=== PATIENT | female | born 1970 | race Caucasian/White ===

== ENCOUNTER → 2020-11-26 14:55 | Outpatient (CLI) | payer OTHER, SELFPAY ==
--- NOTE | ~2020-11-26 | US_ITS ---
EXAMINATION: US pelvic complete DATE: 11/26/2020 15:31 INDICATION: Left adnexal fullness TECHNIQUE: Multiple transabdominal sonographic images of the pelvis were obtained. COMPARISON: None. FINDINGS: The uterus measures 7.2 x 3.3 x 4.5 cm. The endometrial complex measures 4 mm. The right ov hollie measures 2.4 x 2.1 x 1.8 cm. The left ovary measures 1.9 x 1 x 1.8 cm. There is normal vascular f low in the ovaries. There is no free fluid in the pelvis. IMPRESSION: 1. No sonographic correlate for the patient's symptoms. Reviewed, dictated and finalized at location A. SS REP
== END ==
PROVIDERS: Visit Provider Nurse Practitioner
DX: R14.0 Abdominal distension (gaseous) (principal)
CPT/HCPCS: 76856

== ENCOUNTER → 2021-04-08 10:55 | Outpatient (CLI) | payer OTHER, SELFPAY ==
--- NOTE | ~2021-04-08 | MM_ITS ---
EXAMINATION: MM scrn bishop implant BI w darius HISTORY: Bilateral implant rupture. TECHNIQUE: Craniocaudal and mediolateral oblique 3-D tomosynthesis images with implant displacement a nd synthetic 2-D images were generated. Craniocaudal and mediolateral oblique views of the breasts wi thout implant displacement were obtained using full field digital mammography. CAD analysis was submi tted and interpreted. COMPARISON: No prior mammogram is available for comparison at this institution. BREAST PARENCHYMAL COMPOSITION: There are scattered areas of fibroglandular density. FINDINGS: There are bilateral ruptured saline implants. On the CC images there are clustered punctate calcifications in the lateral aspect of the right breast on CC view and medial aspect of the left br east on CC view. These calcifications are not definitely visualized on the MLO views. IMPRESSION: 1. Clustered bilateral breast calcifications. 2. Magnification views are recommended. BI-RADS Category 0: Incomplete: Needs additional imaging evaluation. Reviewed, dictated and finalized at location A.
== END ==
PROVIDERS: Visit Provider Nurse Practitioner
DX: Z12.31 Encounter for screening mammogram for malignant neoplasm of breast (principal); R92.8 Other abnormal and inconclusive findings on diagnostic imaging of breast
CPT/HCPCS: 77063; 77067

== ENCOUNTER → 2021-05-04 08:47 | Outpatient (CLI) | payer OTHER, SELFPAY ==
--- NOTE | ~2021-05-04 | MM_ITS ---
EXAMINATION: MM diagnostic mammo implant BI HISTORY: Follow-up breast calcifications TECHNIQUE: Additional 3-D tomosynthesis images of the breasts were performed and synthetic 2-D images were generated. CAD analysis was submitted and interpreted. COMPARISON: Comparison to multiple prior studies sequentially, with oldest reviewed study dated 08/01. BREAST PARENCHYMAL COMPOSITION: Breast composed of scattered areas of fibroglandular density. FINDINGS: There are bilateral saline implants which are ruptured. There are clustered monomorphic paul cifications near the right chest wall laterally seen on CC implant displaced view only. There are clu stered monomorphic calcifications medial aspect of the left breast near the chest wall also seen on C C implant displaced view only. IMPRESSION: 1. Probable benign bilateral breast calcifications. Evaluation of the calcifications is limited by ov erlying ruptured implant. 2. Recommend 6 month follow-up diagnostic bilateral mammogram. BI-RADS category 3, probably benign findings. Reviewed, dictated and finalized at location A. IMPRESSION: 1. Probable benign bilateral breast calcifications. Evaluation of the calcifica tions is limited by overlying ruptured implant. 2. Recommend 6 month follow-up diagnostic bilateral mammogram. BI-RADS category 3, probably benign findings.
== END ==
PROVIDERS: Visit Provider Obstetrics & Gynecology Gynecology
DX: R92.8 Other abnormal and inconclusive findings on diagnostic imaging of breast (principal)
CPT/HCPCS: 77066

== ENCOUNTER 2021-05-20 08:53 | Day surgery (SDC) | payer OTHER, SELFPAY ==
[2021-05-04 15:10] VITALS: BMI 26.5
--- NOTE | 2021-05-19 15:12 | P.PNAN_ITS ---
Anes - Initial Pre Proc Eval Procedure: Operation Date: 05/20/21 10:00 Proposed Procedures p Bilateral Breast Implant Exchange with Capsulectomy - Dale Clifton MD Date/Time: 05/19/21 15:12 Surgeon: Dale Clifton MD Pre Op Diagnosis: Bilateral Breast Implant Rupture Patient Data Age: 50 Gender: F Height: 1.6 m Weight: 68 kg Allergies Allergy/AdvReac Type Severity Reaction Status Date / Time latex Allergy Intermediate Rash, Verified 05/20/21 09:40 itching Home Medications Medication Instructions Recorded Confirmed Type cholecalciferol (vitamin D3) 50,000 units PO WEEKLY 01/17/21 05/04/21 History magnesium oxide 400 mg PO DAILY 01/17/21 05/04/21 History metoprolol succinate 50 mg 50 mg PO DAILY 01/17/21 05/04/21 History tablet,extended release 24 hr paroxetine HCl 20 mg tablet 20 mg PO DAILY 01/17/21 05/04/21 History docusate sodium 100 mg capsule 100 mg PO DAILY #14 cap 04/21/21 05/04/21 Rx ondansetron HCl 4 mg tablet 4 mg PO Q8H #21 tablet 04/21/21 05/04/21 Rx oxycodone-acetaminophen 5 mg-325 1 tablet PO Q6H PRN #15 tablet 04/25/21 05/04/21 Rx mg tablet norethindrone (contraceptive) 0.35 mg PO DAILY 05/04/21 05/04/21 History [Kristy] Patient hx anesthesia problems: none Family hx anesthesia problems: none PMFSH Past Medical History Medical History (Updated 05/19/21 @ 15:20 by Landon Whitman DO) Anxiety BMI 26.0-26.9,adult DVT (deep venous thrombosis) Screening for lipid disorders Surgical History Surgical History History of breast augmentation Status post de Quervain's release surgery Family History Family History Grandparent Family history of heart disease in male family member before age 55 Diabetes mellitus Other A-fib Macular degeneration Parkinsons disease Social History Social History (Reviewed 05/18/21 @ 11:33 by Amanda Miramontes Smoking status: Never smoker Alcohol intake: current Drinks per week: 4 Substance use: never Substance use type: does not use Living arrangements: with family Gender identity (if verbalized by the patient): Female Spiritual care concerns: No Anes - Eval Final PreProcedure Day of Procedure 05/19/21 15:12 Patient weight: overweight Heart: regular rate and rhythm Lungs: clear to auscultation and normal air movement Airway: Mallampati scale class II Neurological: alert and oriented Last oral intake: >/= 8 hours ASA classification: II Emergent: no Anesthetic plan: proceed Anesthesia type and monitoring: general LMA and standard monitoring Informed Consent: The patient's anesthetic plan and its attendant risks and roxana efits were discussed with the patient/family/POA. Questions were solicited and answers provided to the satisfaction of the patient/family/POA.
[2021-05-20 09:23] VITALS: BP 109/75; PULSE 65; RESP 16; TEMP 37.2; O2SAT 98; BMI 26.9
--- NOTE | 2021-05-20 09:25 | WPDHPUPDATE1 ---
History and Physical Update Update Date/Time: 05/20/21 09:25 History and Physical has been reviewed, including an updated exam of the patient. There are NO changes in the patient's condition. Risks, benefits, and alternatives have been discussed and questions answered. Patient agrees to proceed with procedure.
[2021-05-20] MEDS: LACTATED RINGERS 1,000 ML 30 ML IV CONT (09:32)
[2021-05-20] MEDS: FAMOTIDINE 20 MG/2 ML VIAL IV PUSH (09:33)
[2021-05-20] MEDS: SCOPOLAMINE 1.5 MG PATCH TRANSDERM (09:33)
--- NOTE | 2021-05-20 09:34 | W.PM.PROC2 ---
Procedure Note - Detailed Date of Procedure 05/20/21 Pre-op Diagnosis Bilateral Breast Implant Rupture Post-op Diagnosis same Procedure Performed Bilateral breast implant exchange with capsulectomy Surgeon Dale Clifton MD Anesthesia general Findings Old implants: Textured 250cc saline New Implants Right - REF# [id number] SN [id number] 250 cc Filled to 265 cc Left - REF# [id number] SN [id number] 250 cc Filled to 265 cc Description of Procedure She was marked in the preoperative holding area with her verification. Risks, benefits, alternatives were discussed in extensive detail. I want her to be very realistic about the risks involved as well as expectations. We discussed to me DVT risks. We discussed all her options. She would like proceed as described. All questions were answered to her satisfaction. Consent obtained. She was taken to the operating room placed supine on the operating room table. Anesthesia provided by anesthesiology. Prepped and draped in a standard sterile fashion. Surgical time-out was taken. 1% lidocaine and 0.25% Marcaine with epinephrine was used to provide a field block. A 15 blade used to make an incision excising the previous IMF scar. Dissection was continued until the capsules identified removed the majority of capsule that was safely removed. I irrigated with 3 L of saline containing solution. Verified strict hemostasis. Using a triple antibiotic Betadine solution I copiously irrigated the pocket. Then using a fill kit on the back table I removed all the air from the implant. This was introduced into the pocket and inflated to the volumes as described. I removed the fill port. Verified it was seated. Closed using 2-0 Vicryl followed by 3-0 Monocryl in a running subcuticular 4-0 Monocryl and finally tissue glue. Dressings were placed. She was woken taken to the PACU without difficulty. All instrument sponge counts were correct at the end of the case. Estimated Blood Loss 20 Drains No Packing No Pathology yes ( Bilateral implant capsules) Complications No immediate complications Condition stable Disposition PACU
[2021-05-20] MEDS: ceFAZolin SODIUM 2 GM/20 ML SW SYRINGE IV PUSH (09:51)
[2021-05-20] MEDS: LIDO 1%/EPINEPHRINE 1:100,000 20 ML VIAL 30 ML INFILTRATE (10:08)
[2021-05-20] MEDS: BUPIVACAINE HCL 0.25% 50 ML VIAL 30 ML INFILTRATE (10:08)
[2021-05-20 11:09] VITALS: BP 87/56; PULSE 61; RESP 8; TEMP 36.1; O2SAT 96
[2021-05-20 11:24] VITALS: BP 110/66; PULSE 75; RESP 16; O2SAT 99
[2021-05-20 11:39] VITALS: BP 111/75; PULSE 72; RESP 14; O2SAT 97
[2021-05-20 11:41] VITALS: BP 111/79; PULSE 69; RESP 16; O2SAT 100
[2021-05-20 12:11] VITALS: BP 116/83; PULSE 65; RESP 16; O2SAT 99
--- NOTE | 2021-05-20 12:33 | WPDANESPN ---
Anes - Prog Note Post-Op Date/Time: 05/20/21 12:33 Cardiovascular status: normal Respiratory status: normal Airway patency: baseline Mental status: baseline Post-Op hydration status: normal Vital Signs: Last Vital Signs Temp 36.1 C L 05/20/21 11:09 Pulse 65 05/20/21 12:11 Resp 16 05/20/21 12:11 BP 116/83 05/20/21 12:11 Pulse Ox 99 05/20/21 12:11 Pain Score (VAS): 0 I/O: Intake & Output 05/19/21 05/20/21 05/20/21 23:59 07:59 15:59 Intake Total 900 Balance 900 Post-procedural complaints: none Patient Feedback: Patient satisfied with anesthetic care. Other Findings: Patient vital signs back to baseline. Patient denies nausea and vomiting. Patient's pain under control. Patient OK for discharge.
== END 2021-05-20 12:42 | disposition home or self-care (01) ==
PROVIDERS: PCP Family Medicine; Visit Provider Surgery Plastic and Reconstructive Surgery
PROC: (CPT 19342; principal; 2021-05-20 10:00)
DX: T85.49XA Other mechanical complication of breast prosthesis and implant, initial encounter (principal)
CPT/HCPCS: 19342

== ENCOUNTER 2021-05-20 15:53 | Outpatient (NON) | payer OTHER, SELFPAY | END 2021-05-23 07:25 | disposition home or self-care (01) | PROVIDERS: PCP Family Medicine; Visit Provider Surgery Plastic and Reconstructive Surgery | DX: T85.43XA Leakage of breast prosthesis and implant, initial encounter (principal) | CPT/HCPCS: 88305 ==

== ENCOUNTER 2021-10-16 10:37 | Emergency (ER) | payer OTHER, SELFPAY ==
--- NOTE | ~2021-10-16 | XR_ITS ---
EXAMINATION: XR shoulder LT min 2V INDICATION: Left shoulder pain TECHNIQUE: Four views of the left shoulder are submitted. COMPARISON: None FINDINGS: Normal alignment. No fracture. There is mild osteoarthritis of the glenohumeral and acromio clavicular joints. Soft tissues are unremarkable. IMPRESSION: 1. No acute osseous abnormality. Reviewed, dictated and finalized at location A. STAND LOADER
--- NOTE | ~2021-10-16 | XR_ITS ---
EXAMINATION: XR wrist LT min 3V DATE: 10/16/2021 12:02 INDICATION: Left wrist pain TECHNIQUE: Posteroanterior, ulnar deviation, oblique, and lateral views of the left wrist were obtain ed. COMPARISON: None available FINDINGS: There is no fracture, dislocation, or subluxation. The bones, soft tissues, and joint space s are normal. IMPRESSION: 1. No acute osseous abnormality. Reviewed, dictated and finalized at location A. NE SETTER
[2021-10-16 11:13] VITALS: BP 109/78; PULSE 82; RESP 16; TEMP 36.2; O2SAT 98
--- NOTE | 2021-10-16 12:15 | ED.FALL ---
HPI - Fall General Chief Complaint: Fall Stated Complaint: fall Time Seen by Provider: 10/16/21 12:15 Source: patient, family and RN notes reviewed Mode of arrival: ambulatory Limitations: no limitations History of Present Illness HPI Narrative: Thiago is a 50-year-old female who ambulated into the [facility]. Patient states she fell after tripping on the sidewalk and left landed on her left shoulder and wrist. Patient has moderate bruising to the left wrist. Patient states she cannot raise her left arm. Patient states she can has full movement of her left wrist MD complaint: fall Related Data Home Medications Medication Instructions Recorded Confirmed cholecalciferol (vitamin D3) 50,000 units PO WEEKLY 01/17/21 10/16/21 magnesium oxide 400 mg PO DAILY 01/17/21 10/16/21 metoprolol succinate 50 mg 50 mg PO DAILY 01/17/21 10/16/21 tablet,extended release 24 hr paroxetine HCl 20 mg tablet 20 mg PO DAILY 01/17/21 10/16/21 linaclotide [Linzess] 145 mcg DAILY 10/16/21 10/16/21 Allergies Allergy/AdvReac Type Severity Reaction Status Date / Time latex Allergy Intermediate Rash, Verified 10/16/21 11:46 itching Review of Systems Review of Systems: CONSTITUTIONAL: Denies body aches, fever, chills, or sweats. EYES: Denies visual changes, redness, or discharge. ENT: Denies rhinorrhea, congestion, sore throat, or otalgia. CARDIOVASCULAR: Denies chest pain, palpitations, or edema. RESPIRATORY: Denies cough or dyspnea. GASTROINTESTINAL: Denies abdominal pain, nausea, vomiting, or diarrhea. GENITOURINARY: Denies dysuria or hematuria. SKIN: Denies rash, itching, or wounds. MUSCULOSKELETAL: + left wrist swelling, left shoulder pain, + decreased movement left shoulder NEUROLOGIC: Denies headache, numbness, tingling, or weakness. PSYCH: Denies depression or anxiety. All systems reviewed & are unremarkable except as noted in HPI and below PMFSH Past Medical History Medical History Anxiety BMI 26.0-26.9,adult DVT (deep venous thrombosis) Screening for lipid disorders Surgical History Surgical History History of breast augmentation Status post de Quervain's release surgery Family History Family History Grandparent Family history of heart disease in male family member before age 55 Diabetes mellitus Other A-fib Macular degeneration Parkinsons disease Social History Social History Smoking status: Never smoker Alcohol intake: current Drinks per week: 4 Substance use: never Substance use type: does not use Gender identity (if verbalized by the patient): Female Spiritual care concerns: No Comments At time of signature, I have reviewed and agree with nursing past medical, surgical, social and family history unless otherwise noted. Please see nursing chart for further information. There is no relevant family history pertinent to the presenting complaint Exam Narrative: GENERAL: Well-appearing, well-nourished, and in no acute distress. HEAD: Normocephalic, atraumatic. EYES: EOMI. No redness or drainage. Conjunctivae normal. ENT: Mucous membranes pink and moist. Nares clear. No rhinorrhea. NECK: Normal AROM. Supple. . CHEST: No respiratory distress. HEART: Normal peripheral pulses. MUSCULOSKELETAL: No bony tenderness; tenderness left shoulder, left wrist,0.5cm ecchymotic area to left wrist, EXTREMITIES: Normal range of motion. No edema. SKIN: Warm, dry, no rash. Capillary refill normal. Normal skin turgor. NEURO: No focal deficits. Alert and oriented x3. Gait steady. PSYCH: Normal affect. No signs of depression or anxiety. Course Vital Signs Vital signs: Vital Signs Temperature 36.2 C L 10/16/21 11:13 Pulse Rate 82 10/16/21 11:13 Respiratory Rate
== END 2021-10-16 12:40 | disposition home or self-care (01) ==
PROVIDERS: Emergency Provider Nurse Practitioner Family; PCP Family Medicine
DX: S40.012A Contusion of left shoulder, initial encounter (principal); S60.212A Contusion of left wrist, initial encounter; W01.0XXA Fall on same level from slipping, tripping and stumbling without subsequent striking against object, initial encounter; F41.9 Anxiety disorder, unspecified; Z86.718 Personal history of other venous thrombosis and embolism
CPT/HCPCS: 73030; 73110; 99214; G0463

== ENCOUNTER → 2021-11-17 09:23 | Outpatient (CLI) | payer OTHER, SELFPAY ==
--- NOTE | ~2021-11-17 | MM_ITS ---
EXAMINATION: MM diag bishop implant BI w darius HISTORY: Follow-up breast calcifications TECHNIQUE: Additional 3-D tomosynthesis images of the breasts were performed and synthetic 2-D images were generated. CAD analysis was submitted and interpreted. COMPARISON: Comparison to multiple prior studies sequentially, with oldest reviewed study dated 08/06. BREAST PARENCHYMAL COMPOSITION: Breast composed of scattered areas of fibroglandular density. FINDINGS: There are no suspicious calcifications, architectural distortion or mass in either breast t o suggest malignancy. There are bilateral saline implants. The previously identified calcifications i n the right breast posteriorly on CC view are not identified on the current study. IMPRESSION: 1. No mammographic evidence for malignancy in either breast. 2. Routine yearly screening mammogram and regular clinical breast examination are recommended. BI-RADS Category 1: Negative Reviewed, dictated and finalized at location A. CAN STUDIES PROFESSOR IMPRESSION: 1. No mammographic evidence for malignancy in either breast. 2. Routine yearly screening mammogram and regular clinical breast examination a re recommended. BI-RADS Category 1: Negative
== END ==
PROVIDERS: Visit Provider Obstetrics & Gynecology Gynecology
DX: R92.8 Other abnormal and inconclusive findings on diagnostic imaging of breast (principal)
CPT/HCPCS: 77062; 77066; G0279

== ENCOUNTER → 2022-02-21 16:40 | Outpatient (CLI) | payer OTHER, SELFPAY ==
--- NOTE | ~2022-02-21 | MR_ITS ---
EXAMINATION: MR shoulder LT wo con DATE: 02/21/2022 17:31 INDICATION: Left shoulder, upper arm and neck pain post fall 4 months prior TECHNIQUE: Magnetic resonance imaging (MRI) of the left shoulder was performed without intravenous co ntrast. Sequences included axial PD-weighted FS FSE, coronal oblique PD-weighted FS FSE, coronal obli que T2-weighted FS FSE, sagittal PD-weighted FS FSE, and sagittal T1-weighted SE. COMPARISON: None. FINDINGS: Coracoacromial arch: The acromion undersurface is curved in morphology (type II). The coracoacromial ligament is normal. M ild acromioclavicular osteoarthritis with cystic change at the lateral head of the clavicle. Rotator cuff: Moderate supraspinatus tendinopathy and mild infraspinatus tendinopathy without discrete tear. The te res minor tendon is normal. Subscapularis tendinopathy with small linear longitudinal split tear with trace amount of fluid tracking medially from the lesser tuberosity footplate along otherwise intact appearing tendon fibers. Normal rotator cuff muscle bulk and signal. Biceps tendon, glenoid labrum and glenohumeral cartilage: Long head of the biceps tendon is normal. Degenerative tearing with amorphous increased signal and ir regular contour to the anteroinferior labrum. Glenohumeral cartilage is normal. Fluid: Physiologic amount of fluid in the glenohumeral joint and biceps tendon sheath. No loose osteochondr al bodies. No abnormally increased fluid signal in the subacromial/subdeltoid bursa to suggest bursit is. Bones: Normal marrow signal with no edema, fracture or abnormal marrow replacing process. IMPRESSION: 1. Moderate supraspinatus tendinopathy without discrete tear and mild tendinopathy with small longitu dinal split tear at the distal subscapularis tendon. 2. Degenerative tearing at the anteroinferior glenoid labrum. 3. Mild acromioclavicular osteoarthritis. Reviewed, dictated and finalized at location A. IMPRESSION: 1. Moderate supraspinatus tendinopathy without discrete tear and mild tendinopa thy with small longitudinal split tear at the distal subscapularis tendon. 2. Degenerative tearing at the anteroinferior glenoid labrum. 3. Mild acromioclavicular osteoarthritis.
== END ==
PROVIDERS: PCP Family Medicine; Visit Provider Nurse Practitioner Family
DX: S49.92XA Unspecified injury of left shoulder and upper arm, initial encounter (principal); X58.XXXA Exposure to other specified factors, initial encounter; M19.012 Primary osteoarthritis, left shoulder
CPT/HCPCS: 73221

== ENCOUNTER → 2023-02-19 11:10 | Outpatient (CLI) | payer OTHER, SELFPAY ==
--- NOTE | ~2023-02-19 | DEXA_ITS ---
Bone Density Report Name: LESIA BRANDON Age: 52 Sex: Female Ethnicity: White Date of : 1970 Indication: postmenopausal; screening for osteoporosis; Referring Provider: MOLLY, ZEYNEP Study: Bone densitometry was performed. Exam Date: February 19, 2023 Accession number: [id number] Bone Density: Region BMD T-score Z-score Classification AP Spine (L1-L4) 0.891 -1.4 -0.5 Osteopenia Femoral Neck (Left) 0.847 0.0 0.9 Normal Total Hip (Left) 0.952 0.1 0.7 Normal Femoral Neck (Right) 0.789 -0.5 0.4 Normal Total Hip (Right) 0.915 -0.2 0.4 Normal Total Hip Mean 0.934 -0.1 0.6 Normal World Health Organization criteria for BMD impression classify patients as: Normal (T-score at or above -1.0), Osteopenia (T-score between -1.0 and -2.5), or Osteoporosis (T-score at or below -2.5). 10-year Fracture Risk(1): Major Osteoporotic Fracture 4.8% Hip Fracture 0.1% Reported Risk Factors: [place] (), Neck BMD=0.789, BMI=28.0 (1) FRAX(R) Version 3.08. Fracture probability calculated for an untreated patient. Fracture probability may be lower if the patient has received treatment. Clinical Information Provided by Patient: Has used the following medications: Vitamin D Patient maximum height was 62.7 Menopause Age: 51 No regular weight bearing exercise Drinks caffeinated beverages Onset of menses at age 13 Number of children 2 Missed period for more than 6 months in a row Impression: The patient has low bone mass, based on the Total Spine T-score. The patient has an estimated ten-year risk of hip fracture of 0.1% and an estimated ten-year risk of major fracture of 4.8%, based on the WHO FRAX algorithm. Discussion: BONE DENSITY IS LOW AT ONE OR MORE SKELETAL SITES. This patient's lowest T-score is low at one or more skeletal sites. It meets the World Health Organization's (WHO) criteria for ?low bone mass? (T-score between -1.0 and -2.5). The patient's 10-year risk of fracture as calculated by FRAX is less than the threshold where pharmacological therapy is recommended by the National Osteoporosis Foundation (NOF). However, all treatment decisions require clinical judgment and consideration of individual patient factors, including patient preferences, comorbidities, previous drug use, risk factors not captured in the FRAX model (e.g., frailty, falls, vitamin D deficiency, increased bone turnover, interval significant decline in bone density) and possible under or overestimation of fracture risk by FRAX. The patient should follow a healthful lifestyle (good nutrition with adequate calcium and vitamin D, and appropriate weight-bearing exercise). Follow-Up: Consider repeating this study in 2 to 3 years to reassess this patient's status, or sooner if there is some new clinical indication. Re
--- NOTE | ~2023-02-19 | MM_ITS ---
EXAMINATION: MM scrn bishop implant BI w darius HISTORY: Screening mammogram TECHNIQUE: Craniocaudal and mediolateral oblique 3-D tomosynthesis images with implant displacement a nd synthetic 2-D images were generated. Craniocaudal and mediolateral oblique views of the breasts wi thout implant displacement were obtained using full field digital mammography. CAD analysis was submi tted and interpreted. COMPARISON: 11/17/2021, 05/04/2021, 04/08/2021 BREAST PARENCHYMAL COMPOSITION: There are scattered areas of fibroglandular density. FINDINGS: There is no evidence of suspicious mass, calcification, or architectural distortion to sugg est malignancy in either breast. There has been no suspicious interval change. IMPRESSION: 1. No mammographic evidence of malignancy. 2. Recommend routine screening mammography in one year. BI-RADS Category 1: Negative Reviewed, dictated and finalized at location A.
== END ==
PROVIDERS: PCP Nurse Practitioner; Visit Provider Nurse Practitioner
DX: Z78.0 Asymptomatic menopausal state (principal); Z12.31 Encounter for screening mammogram for malignant neoplasm of breast; M85.88 Other specified disorders of bone density and structure, other site
CPT/HCPCS: 77063; 77067; 77080

== ENCOUNTER 2023-09-13 08:09 | Day surgery (SDC) | payer OTHER, SELFPAY ==
[2023-08-21 14:58] VITALS: BMI 29.4
--- NOTE | 2023-09-12 07:18 | WPDANESEPPF ---
Anes - Initial Pre Proc Eval Procedure: Operation Date: 09/13/23 10:00 Proposed Procedures p Screening Colonoscopy - Best Arce MD Date/Time: 09/12/23 07:18 Surgeon: Best Arce MD Pre Op Diagnosis: Z12.11 Screening neoplasm of colon Patient Data Age: 52 Gender: F Height: 1.6 m Weight: 75.296 kg Allergies Allergy/AdvReac Type Severity Reaction Status Date / Time latex Allergy Intermediate Rash, Verified 09/13/23 08:49 itching Home Medications Medication Instructions Recorded Confirmed Type cholecalciferol (vitamin D3) 50,000 units PO WEEKLY 01/17/21 09/13/23 History magnesium oxide 400 mg PO DAILY 01/17/21 09/13/23 History metoprolol succinate 50 mg 50 mg PO DAILY 01/17/21 09/13/23 History tablet,extended release 24 hr paroxetine HCl 20 mg tablet (Paxil) 20 mg PO DAILY 01/17/21 09/13/23 History cyclobenzaprine 5 mg tablet 5 mg PO QHS PRN muscle spasm #30 02/14/22 09/13/23 Rx tabs triamcinolone acetonide 0.1 % 1 applic topical TID #30 grams 05/03/23 09/13/23 Rx topical cream Patient hx anesthesia problems: none Family hx anesthesia problems: none Results Review: All pre-operative results and documents have been reviewed as part of the pre-operative evaluation. [facility] Past Medical History Medical History (Updated 09/13/23 @ 09:10 by Landon Whitman DO) Anxiety BMI 26.0-26.9,adult DVT (deep venous thrombosis) DAVID (obstructive sleep apnea) Screening for lipid disorders Surgical History Surgical History History of breast augmentation Status post de Quervain's release surgery Family History Family History Grandparent Family history of heart disease in male family member before age 55 Diabetes mellitus Other A-fib Macular degeneration Parkinsons disease Social History Social History Alcohol intake: current Drinks per week: 4 Substance use: never Substance use type: does not use Living arrangements: with family Gender identity (if verbalized by the patient): Female Spiritual care concerns: No Anes - Eval Final PreProcedure Day of Procedure 09/12/23 07:18 Patient weight: overweight Heart: regular rate and rhythm Lungs: clear to auscultation Airway: Mallampati scale class II Neurological: alert and oriented Last oral intake: >/= 8 hours ASA classification: III Emergent: no Anesthetic plan: proceed Anesthesia type and monitoring: general GIVS and standard monitoring Results Review: All pre-operative results and documents have been reviewed as part of the pre-operative evaluation. Informed Consent: The patient's anesthetic plan and its attendant risks and benefits were discussed with the patient/family/POA. Questions were solicited and answers provided to the satisfaction of the patient/family/POA.
--- NOTE | 2023-09-12 13:19 | PM.HPGS ---
History of Present Illness History of Present Illness Consent: Risks, benefits, and alternatives have been discussed and questions answered. Patient agrees to proceed with procedure. Chief complaint: Z12.11 Screening neoplasm of colon Narrative: Tiffanie Esquivel is a 52 year old female referred for colon cancer screening. Review of Systems Review of Systems: All systems reviewed & are unremarkable except as noted in HPI and below PMFSH Past Medical History Medical History Anxiety BMI 26.0-26.9,adult DVT (deep venous thrombosis) Screening for lipid disorders Surgical History Surgical History History of breast augmentation Status post de Quervain's release surgery Family History Family History Grandparent Family history of heart disease in male family member before age 55 Diabetes mellitus Other A-fib Macular degeneration Parkinsons disease Social History Social History Alcohol intake: current Drinks per week: 4 Substance use: never Substance use type: does not use Living arrangements: with family Gender identity (if verbalized by the patient): Female Spiritual care concerns: No Meds Home Medications and Allergies Home Medications Medication Instructions Recorded Confirmed Type cholecalciferol (vitamin D3) 50,000 units PO WEEKLY 01/17/21 09/13/23 History magnesium oxide 400 mg PO DAILY 01/17/21 09/13/23 History metoprolol succinate 50 mg 50 mg PO DAILY 01/17/21 09/13/23 History tablet,extended release 24 hr paroxetine HCl 20 mg tablet (Paxil) 20 mg PO DAILY 01/17/21 09/13/23 History cyclobenzaprine 5 mg tablet 5 mg PO QHS PRN muscle spasm #30 02/14/22 09/13/23 Rx tabs triamcinolone acetonide 0.1 % 1 applic topical TID #30 grams 05/03/23 09/13/23 Rx topical cream Allergies Allergy/AdvReac Type Severity Reaction Status Date / Time latex Allergy Intermediate Rash, Verified 09/13/23 08:49 itching Exam Const: General: alert Orientation/consciousness: patient oriented x3 Resp: Auscultation: clear to auscultation bilaterally Cardio: Rhythm: regular rhythm GI: GI Palp: Yes Soft to palpation and No Tenderness to palpation present (GI) Neuro: General: patient oriented x3 Assessment and Plan Assessment and plan (1) Colon cancer screening: Code(s): Z12.11 - Encounter for screening for malignant neoplasm of colon Status: Acute Assessment and Plan: Colonoscopy with possible biopsy or polypectomy or cautery or injection of substances.
[2023-09-13 08:56] VITALS: BP 118/84; PULSE 85; RESP 16; O2SAT 99; BMI 27.8
[2023-09-13] MEDS: LACTATED RINGERS 1,000 ML 150 ML IV CONT (09:06)
[2023-09-13 09:50] VITALS: BP 91/59; PULSE 96; RESP 16; O2SAT 75
[2023-09-13 10:00] VITALS: BP 98/70; PULSE 80; RESP 18; O2SAT 100
[2023-09-13 10:10] VITALS: BP 104/77; PULSE 72; RESP 20; O2SAT 99
--- NOTE | 2023-09-13 11:49 | WPDANESPN ---
Anes - Prog Note Post-Op Date/Time: 09/13/23 11:49 Cardiovascular status: normal Respiratory status: normal Airway patency: baseline Mental status: baseline Post-Op hydration status: normal Vital Signs: Last Vital Signs Pulse 72 09/13/23 10:10 Resp 20 09/13/23 10:10 BP 104/77 09/13/23 10:10 Pulse Ox 99 09/13/23 10:10 O2 Del Method Room Air 09/13/23 10:10 Pain Score (VAS): 0 I/O: Intake & Output 09/12/23 09/13/23 09/13/23 23:59 07:59 15:59 Intake Total 550 Balance 550 Post-procedural complaints: none Patient Feedback: Patient satisfied with anesthetic care. Other Findings: Patient vital signs back to baseline. Patient denies nausea and vomiting. Patient's pain under control. Patient OK for discharge.
== END 2023-09-13 10:26 | disposition home or self-care (01) ==
PROVIDERS: PCP Family Medicine; Visit Provider Internal Medicine Gastroenterology
PROC: 0DJD8ZZ Inspection of Lower Intestinal Tract, Via Natural or Artificial Opening Endoscopic (ICD-10-PCS; CPT 45378; principal; 2023-09-13 10:00)
DX: Z12.11 Encounter for screening for malignant neoplasm of colon (principal); K63.89 Other specified diseases of intestine
CPT/HCPCS: 45378

== ENCOUNTER 2024-04-10 04:09 | Emergency (ER) | payer OTHER, SELFPAY ==
--- NOTE | ~2024-04-10 | CT_ITS ---
Non-contrast Head CT History: Seizure Technique: Axial non-contrast imaging of the brain was performed. Dose reduction technique was used on this scan by utilizing automated exposure control and iterative reconstruction technique. The dose -length product (DLP) was 529.67 mGy-cm. Findings: There is no evidence of intracranial hemorrhage, mass lesion, or acute infarct. Brain par enchyma appears normal. The ventricles and subarachnoid spaces are normal in size. The calvarium ap pears normal. The visualized paranasal sinuses and mastoid air cells are clear. Impression: No significant abnormality seen. Reviewed, dictated and finalized at location . Impression: No significant abnormality seen.
--- NOTE | ~2024-04-10 | XR_ITS ---
Portable chest x-ray Comparison: 12/01/2014 Clinical History: Seizure Findings: Lungs are clear, without focal consolidation or pleural effusion. Cardiomediastinal silho uette is stable. Bones and soft tissues are unremarkable. Impression: Normal chest. Reviewed, dictated and finalized at location . Impression: Normal chest.
[2024-04-10 04:10] VITALS: BP 107/77; PULSE 86; RESP 19; TEMP 36.7; O2SAT 98
[2024-04-10 04:11] VITALS: PULSE 86
[2024-04-10 04:13] VITALS: BP 107/77; PULSE 83; RESP 16; TEMP 36.7; O2SAT 96; O2SAT 98
[2024-04-10 04:20] LABS: Basophils Absolute Auto 0.1 K/mm3 (0.0-0.1); Basophils Percent Auto 0.9 % (0.2-1.2); Eosinophils Absolute Auto 0.1 K/mm3 (0-0.3); Eosinophils Percent Auto 2.3 % (0-4.4); Hematocrit 38.2 % (37.0-47.0); Hemoglobin 12.7 g/dL (12.0-15.0); Immature Granulocyte Absolute 0.02 K/mm3 (0.00-0.031); Immature Granulocyte Percent A 0.4 % (0-0.5); Lymphocytes Absolute Auto 1.77 K/mm3 (0.9-3.2); Lymphocytes Percent Auto 31.5 % (18.3-44.2); Mean Corpuscular HGB Conc 33.2 g/dl (32-36); Mean Corpuscular Hemoglobin 29.7 pg (26-34); Mean Corpuscular Volume 89.5 fl (80-100); Mean Platelet Volume 10.6 fl (7.4-10.4); Monocytes Absolute Auto 0.3 K/mm3 (0.1-0.6); Monocytes Percent Auto 5.5 % (2.6-8.5); Neutrophils Absolute Auto 3.3 K/mm3 (1.3-6.7); Neutrophils Percent Auto 59.4 % (45.5-73.1); Platelet Count Result 258 k/mm3 (150-375); Red Blood Count 4.27 M/mm3 (4.2-5.4); Red Cell Distribution Width 12.4 % (11.5-14.5); White Blood Count 5.6 K/mm3 (4.5-10.0)
[2024-04-10 04:31] LABS: Alanine Aminotransferase 17 U/L (6-35); Albumin Level 4.5 g/dL (3.5-5.1); Alkaline Phosphatase 59 U/L (38-126); Anion Gap 9 mmol/L (4-12); Aspartate Amino Transferase 22 U/L (14-36); Bilirubin,Total 0.4 mg/dL (0.2-1.3); Blood Urea Nitrogen 24 mg/dL (7-17); Calcium 9.1 mg/dL (8.4-10.2); Carbon Dioxide 21 mmol/L (22-30); Chloride 105 mmol/L (98-107); Estimated CRCL calculation 74 ml/min; Estimated Glomerular Filt Rate > 60; Glucose 163 mg/dL (65-110); Magnesium 1.9 mg/dL (1.6-2.3); Potassium 4.6 mmol/L (3.4-5.0); Sodium 135 mmol/L (137-145)
[2024-04-10 05:52] VITALS: BP 110/80; PULSE 68; RESP 13; O2SAT 96
--- NOTE | 2024-04-10 06:05 | ED.GENADULT ---
HPI - General Adult General Chief complaint: Seizure Stated complaint: poss seizure Time Seen by Provider: 04/10/24 05:51 History of Present Illness HPI narrative: Patient is a 53-year-old female who presents the emergency department this morning after a seizure episode that occurred at home. Patient denies any history of seizure disorder. Patient was sleeping next to her and has been states that he woke up to her shaking in bed. When he got up he noticed that she was foaming at the mouth and was not responsive to him. Patient did have an episode of urinary incontinence. Patient and have been on a keto diet recently and this is the only thing that changed in her daily habits. Patient is currently denying any headaches, dizziness, lightheadedness, focal weakness, numbness and no tingling. No fevers or chills at home. No additional symptoms or concerns at this time. Related Data Home Medications Medication Instructions Recorded Confirmed cholecalciferol (vitamin D3) 50,000 units PO WEEKLY 01/17/21 09/13/23 magnesium oxide 400 mg PO DAILY 01/17/21 09/13/23 metoprolol succinate 50 mg 50 mg PO DAILY 01/17/21 09/13/23 tablet,extended release 24 hr paroxetine HCl 20 mg tablet (Paxil) 20 mg PO DAILY 01/17/21 09/13/23 Allergies Allergy/AdvReac Type Severity Reaction Status Date / Time latex Allergy Intermediate Rash, Verified 04/10/24 04:11 itching Review of Systems Review of Systems: All systems are reviewed and are negative unless stated otherwise in the HPI. [facility] Past Medical History Medical History Anxiety BMI 26.0-26.9,adult DVT (deep venous thrombosis) DAVID (obstructive sleep apnea) Screening for lipid disorders Surgical History Surgical History History of breast augmentation Status post de Quervain's release surgery Family History Family History Grandparent Family history of heart disease in male family member before age 55 Diabetes mellitus Other A-fib Macular degeneration Parkinsons disease Social History Social History Alcohol intake: current Drinks per week: 4 Substance use: never Substance use type: does not use Living arrangements: with family Gender identity (if verbalized by the patient): Female Spiritual care concerns: No Exam Narrative: General: Alert, awake, afebrile, in no acute distress. HEENT: PERRL, no rhinorrhea, no post nasal drip, oropharynx clear. Cardiovascular: Regular rate and rhythm, no murmurs, rubs or gallops, no peripheral edema. Respiratory: Clear to auscultation bilaterally, no tachypnea, no wheezing, no rhonchi, no rubs, no respiratory distress. Abdomen: Soft, nontender, nondistended, no rebound, no guarding, no peritoneal signs. Musculoskeletal: No joint swelling or deformity, normal muscle tone. Skin: No rashes or petechia, no signs of infection. Neurological: Alert and oriented to person, place, and time. Follows all commands. 5/5 motor strength in the bilateral upper and lower extremity, sensation intact to bilateral upper and lower extremity, cranial nerves 2-12 grossly intact. No focal deficits, speech is clear and fluent. Course Vital Signs Vital signs: Vital Signs Temperature 98.1 F 04/10/24 04:10 Pulse Rate 86 04/10/24 04:10 Respiratory Rate 19 04/10/24 04:10 Blood Pressure 107/77 04/10/24 04:10 Pulse Oximetry 98 04/10/24 04:10 Oxygen Delivery Room Air 04/10/24 04:10 Temperature 98.1 F 04/10/24 04:13 Pulse Rate 68 04/10/24 05:52 Respiratory Rate 13 04/10/24 05:52 Blood Pressure 110/80 04/10/24 05:52 Pulse Oximetry 96 04/10/24 05:52 Oxygen Delivery Room Air 04/10/24 04:13 Medical Decision Making MDM Narrative Medical decision making
[2024-04-10 06:43] LABS: Appearance Urine Clear (Clear); Bacteria Urine None Seen /hpf; Bilirubin Urine Negative (Negative); Blood Urine Negative (Negative); Color Urine Yellow (Yellow); Glucose Urine UA Negative (Negative); Ketones Urine Negative (Negative); Leukocyte Esterase Ur Negative LEU/UL (Negative); Nitrate Urine Negative (Negative); Protein Urine Trace mg/dL (Negative); RBC Urine 0-2 /hpf (0-2); Specific Grav Ur 1.021 (1.001-1.035); Squamous Epithelial Cell Urine None Seen /hpf (Few); Urobilinogen Urine 0.2 mg/dL (<2.0); WBC Urine 0-5 /hpf (0-3)
[2024-04-10 06:50] VITALS: BP 109/78; PULSE 67; RESP 20; O2SAT 97
[2024-04-10 06:59] LABS: Add Urine Microscopic? YES
== END 2024-04-10 06:50 | disposition home or self-care (01) ==
PROVIDERS: Emergency Provider Emergency Medicine; PCP Family Medicine
DX: R56.9 Unspecified convulsions (principal); G47.33 Obstructive sleep apnea (adult) (pediatric); F41.9 Anxiety disorder, unspecified; Z86.718 Personal history of other venous thrombosis and embolism; Z79.899 Other long term (current) drug therapy
CPT/HCPCS: 36415; 70450; 71045; 80053; 81001; 81025; 83735; 85025; 99284

== ENCOUNTER 2024-04-23 16:40 | Outpatient (CLI) | payer OTHER, SELFPAY ==
--- NOTE | ~2024-04-23 | MR_ITS ---
EXAMINATION: MR brain/brain stem wo/w con DATE: 04/23/2024 17:35 INDICATION: Unspecified convulsions TECHNIQUE: Magnetic resonance imaging (MRI) of the brain and brainstem was performed without and with 13 mL Multihance intravenous contrast. Sequences included sagittal and axial T1-weighted SE, axial d iffusion-weighted FS SE, axial 3D SWAN, axial T2-weighted FLAIR, and axial T2-weighted FSE. Postcontr ast axial and coronal T1-weighted SE was obtained. Apparent diffusion coefficient (ADC) maps were cre ated. COMPARISON: Head CT dated 04/10/2024 FINDINGS: There are no areas of restricted diffusion to suggest acute infarction. No intracranial hemorrhage or abnormal intracranial mass lesion. There are are couple tiny foci of nonspecific increased T2-weight ed signal intensity in the bilateral frontal lobe cerebral white matter which is within normal limits for age. There are no intraparenchymal signal abnormalities seen on the other pulse sequences. The v entricles are symmetric and normal in size. There are no abnormal extra-axial fluid collections. Flow voids are seen in the cerebral arteries on the T2-weighted sequences consistent with their expected patency. Mucous retention cysts are seen along the floor of the left sphenoid sinus. Visualized orbit s and soft tissues are unremarkable. There are no areas of abnormal enhancement on the post contrast images. IMPRESSION: 1. Normal for age brain with no acute intracranial process or abnormally enhancing brain lesions. Reviewed, dictated and finalized at location A. IMPRESSION: 1. Normal for age brain with no acute intracranial process or abnormally enhanc ing brain lesions.
== END 2024-04-23 16:41 | disposition home or self-care (01) ==
PROVIDERS: PCP Family Medicine; Visit Provider Physician Assistant Medical
DX: R56.9 Unspecified convulsions (principal)
CPT/HCPCS: 70553; A9577

== ENCOUNTER 2025-02-03 11:35 | Outpatient (CLI) | payer OTHER, SELFPAY ==
--- NOTE | ~2025-02-03 | MM_ITS ---
EXAMINATION: MM scrn bishop implant BI w darius HISTORY: Screening mammogram TECHNIQUE: Craniocaudal and mediolateral oblique 3-D tomosynthesis images with implant displacement a nd synthetic 2-D images were generated. Craniocaudal and mediolateral oblique views of the breasts wi thout implant displacement were obtained using full field digital mammography. CAD analysis was submi tted and interpreted. COMPARISON: Comparison to multiple prior studies sequentially, with oldest reviewed study dated 08/06. BREAST PARENCHYMAL COMPOSITION: Not dense: There are scattered areas of fibroglandular density. FINDINGS: There is no evidence of suspicious mass, calcification, or architectural distortion to sugg est malignancy in either breast. There has been no suspicious interval change. IMPRESSION: 1. No mammographic evidence of malignancy. 2. Recommend routine screening mammography in one year. BI-RADS Category 1: Negative Reviewed, dictated and finalized at location A.
== END 2025-02-03 11:36 | disposition home or self-care (01) ==
PROVIDERS: PCP Nurse Practitioner; Visit Provider Nurse Practitioner
DX: Z12.31 Encounter for screening mammogram for malignant neoplasm of breast (principal)
CPT/HCPCS: 77063; 77067

== ENCOUNTER 2025-05-14 09:36 | Emergency (ER) | payer OTHER, SELFPAY ==
--- NOTE | ~2025-05-14 | XR_ITS ---
EXAM/ PROCEDURE: XR ankle LT min 3V - 05/14/2025 10:23 CDT HISTORY: 54 years old Female with FALL YESTERDAY SWOLLEN ON LAT SIDE W/ SLIGHT BRUISING COMPARISON: None available TECHNIQUE: Three view(s) FINDINGS/ IMPRESSION: There are no fractures or dislocations.Joint spaces are within normal limits. Diffuse soft tissue swe lling around the lateral aspect of the ankle. Reviewed, dictated and finalized at location A.
--- NOTE | ~2025-05-14 | XR_ITS ---
EXAM/ PROCEDURE: XR foot LT min 3V, XR tibia fibula RT 2V - 05/14/2025 11:20 CDT HISTORY: 54 years old Female with 4th and 5th metatarsal pain COMPARISON: None available TECHNIQUE: Three view(s) each FINDINGS/ IMPRESSION: There are no fractures or dislocations.Joint space narrowing, subchondral sclerosis, subchondral cyst formation and osteophyte formation, compatible with mild osteoarthritis. Reviewed, dictated and finalized at location A.
--- OUTSIDE RECORDS SUMMARY | 2025-05-14 09:38 | XMS_ITS | Clinical Summary ---
Author Organization [facility] Address [address] [place] [address] Care Team Providers Care Hide Dyer Name Role Phone Unavailable Primary Care Provider Unavailabl e Source Comments [facility],non-owned Affiliates and Associated Physician Practices is amultiple site organization consisting of ambulatory clinics and hospital sitesin [place], [place] and [place]. This disclosure is being madepursuant to the Care Everywhere program and may not contain all information available regarding this patient. Last updated 18[employer] [facility] Allergies Active Allergy Reactions Criticality Noted Date Comments Latex Rash,Itching Medium 01/21/2019 Medications * Be aware that medications may not be up to date on this document. Alwaysverify current medications with the patient. METOPROLOL TARTRATE PO Active Cholecalciferol (VITAMIN D PO) Activ e Rivaroxaban (XARELTO PO) Active LINACLOTIDE PO Activ e PARoxetine HCl (PAXIL PO) Active Social History Tobacco Use Types Packs/Day Years Used Date Smoking Tobacco: Never Smokeless Tobacco: Never Comments Unknown Sex and Gender Information Value Date Recorded Sex Assigned at Not on file Legal Sex Female 1:39 PM CDT Gender Identity Not on file Sexual Orientation Not on file Last Filed Vital Signs Vital Sign Reading Time Taken Comments Blood Pressure 118/76 01/21/2019 6:28 PM CDT Pulse 73 01/21/2019 6:28 PM CDT Temperature 36.9 C (98.5 F) 01/21/2019 6:28 PM CDT Respiratory Rate - - Oxygen Saturation 98% 01/21/2019 6:28 PM CDT Inhaled Oxygen Concentration - - Weight 67.1 kg (148 lb) 01/21/2019 6:28 PM CDT Height 160 cm (5' 3) 01/21/2019 6:28 PM CDT Body Mass Index 26.22 01/21/2019 6:28 PM CDT Plan of Treatment Health Maintenance Due Date Last Done Comments COLOGUARD (AGES 45-75) - COL ON CA SCREENING 1969 COLON MONITORING 1969 COLONOSCOPY - COLON CA SCREENING 1969 CT COLONOGRAPHY - COLON CA SCREENING 1969 Colorectal Cancer Screening 1969 FIT - COLON CA SCREENING 1969 FLEX SIG - COLON CA SCREENING 1969 LIPID TESTING 1969 MAMMOGRAM 1969 HIV SCREENING 1984 HEPATITIS C SCREENING 11/17/1987 DTAP/TDAP/TD VACCINES (1 - Tdap) 1988 HEPATITIS B VACCINE (1 of 3 - 19+ 3-dose series) 1988 SCREENING FOR DIABETES 01/21/2019 PNEUMOCOCCAL VACCINE 50+ (1 of 1 - PCV) 2019 ZOSTER VACCINE (1 of 2) 2019 COVID-19 VACCINE (1 - 2023-2 5 season) 2024 DEPRESSION SCREENING 11/05/2024 INFLUENZA VACCINE (Season Ended) 2025 HIB VACCINE Aged Out No longer eligi ble based on patient's age to complete this topic HPV VACCINE Aged Out No longer eligi ble based on patient's age to complete this topic MENINGOCOCCAL (Group B) VACC INE SHARED DECISION-MAKING Aged Out No longer eligibl e based on patient's age to complete this topic MENINGOCOCCAL GROUPS A/C/Y/W VACCINE Aged Out No longer eligible b ased on patient's age to complete this topic Insurance [facility]
--- OUTSIDE RECORDS SUMMARY | 2025-05-14 09:38 | XMS_ITS | Encounter Summary ---
Author Organization [facility] Address [address] [place] [address] Phone Care Team Providers Care Central Station Operator Name Role Phone Melissa Mendez Primary Care Provider [phone] Reason for Referral * Consultation (Routine) - Pending Review Specialty Diagnoses / Procedures Referred By Audrey westfall Referred To Contact Sleep Medicine Diagnoses DAVID (obstructive sleep apnea) Humberto Palacios MD 1 [facility] [address] [address] Phone: tel: fax: [facility] (All Locations) Referral ID Status Reason Start Date Expiration Date Visits Requested Visits Authorized [id number] Pending Review Specialty Services Required 05/13/2025 06/12/2026 1 1 Question Answer Please select the performing region: [facility] (All Locations) [167] # of visits: 1 Reason for Visit * Reason Comments Seizures Encounter Details Date Type Department Care Team (Late st Contact Info) Description 05/13/2025 9:00 AM CDT Office Visit [facility] Epilepsy [address] [place] [address] Humberto Palacios MD [facility] [address] [place] [address] [phone] DAVID (obstructive sleep apnea) (Primary Dx) Social History Tobacco Use Types Packs/Day Years Used Date Smoking Tobacco: Never Smokeless Tobacco: Never Tobacco Cessation:Counseling Given: Not Answered Alcohol Use Standard Drinks/Week Comments Yes 0 (1 standard drink = 0.6 oz pur e alcohol) occasional Comments Unknown Sex and Gender Information Value Date Recorded Sex Assigned at Not on file Legal Sex Female 4:06 AM URBAN ANTHROPOLOGIST Gender Identity Female 08/03/2024 9:28 PM CDT Sexual Orientation Not on file documented as of this encounter Last Filed Vital Signs Vital Sign Reading Time Taken Comments Blood Pressure 111/72 05/13/2025 8:59 AM CDT Pulse 64 05/13/2025 8:59 AM CDT Temperature 36.8 C (98.2 F) 05/13/2025 8:59 AM CDT Respiratory Rate - - Oxygen Saturation 97% 05/13/2025 8:59 AM CDT Inhaled Oxygen Concentration - - Weight 75.3 kg (166 lb) 05/13/2025 8:59 AM CDT Height 158.8 cm (5' 2.5) 05/13/2025 8:59 AM CDT Body Mass Index 29.88 05/13/2025 8:59 AM CDT documented in this encounter Progress Notes * Humberto Palacios MD - 05/13/2025 9:00 AM CDT Images from the original note were not included. Name: Tiffanie Esquivel Date of : 1970 PCP: Melissa Mendez PA Date: 05/13/2025 Provider: Humberto Palacios MD INTERVAL HISTORY: No seizures or seizure-like activity. Continues lamotrigine 100 mg twice daily. Tolerating this without issues. Reports sporadic episodes of visual flashes without accompanying symptoms or clear triggers, lasting up to 15 seconds, and possibly associated with positional changes. These are not disabling or clinically significant. 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 Has DAVID but has not been using CPAP. HISTORY OF PRESENT ILLNESS Tiffanie Esquivel is a 54 y.o. right-handed female who was referred by ROSHAN Coelho for evaluationof single seizure. Patient is accompanied by her , Ed, who helps to provide the history. Shirin had seizure-like activity, occurring out of sleep, on 04/10/24. Ed was alerted awake by erratic, loud breathing and noted Shirin foaming at the mouth, unresponsive, and unarousable. She may havehad stiffness of her arms, extended at her sides, before they pulled up and flexed at her elbows. The duration of the event is uncertain, but Ed believes she was unresponsive for approximately 30 minutes total. Shirin does not remember the event. She did open her eyes once when EMS was present and looked around the room, observably confused, but does not remember anything until arriving at the hospital. There were no clear extenuating provocations. Shirin did use alprazolam in the past sporadically for anxiety but is no longer taking this medication. She was evaluated at the ED at [facility] where a CT head and blood tests were unremarkable and she was subsequently discharged home. She denies any other seizures or seizure-like activity preceding or succeeding this event. She reached out to her PCP who ordered an MRI brain on 04/23, images of which are not available for review at this encounter, but which reportedly showed no epileptogenic lesions. She has not yet pursued an EEG. She is not an any [facility]. At encounter 07/08/24, Shirin reported no seizures or seizure-like activity in the interval period.She had continue levetiracetam 500mg twice daily but sometimes misses morning dose. Reports irritability and fatigue on levetiracetam. Not currently using PAP despite DAVID. Continues on paroxetine 20mg daily for depressive symptoms, prescribed by PCP. She is not following with a psychiatrist. She isnot currently driving. Event #1 Type: BTCS vs. FIAS Subjective: none Objective: foaming at the mouth, posturing of UEs, unresponsive, unarousable Post-ictal: lethargic, unresponsive Duration: uncertain, suspected less than 5 minutes (time it took for EMS to come) Tongue Biting: no Urinary Incontinence: yes Frequency: once lifetime Last event: 04/10/24 Risk factors: Head trauma: fell off [id number] and lost consciousness Developmental delay: no VP [employer] infections: no Stroke: no Brain tumor: no Family history of seizures: no PAST MEDICAL HISTORY Medical Conditions Diagnosis PVC (premature ventricular contraction) Depression Seizure (HCC) PAST SURGICAL HISTORY No past surgical history on file. 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 FAMILY HISTORY Family History Problem Relation Age of Onset Parkinsonism Mother MEDICATIONS Current Outpatient Medications Medication Instructions lamoTRIgine (LAMICTAL) 100 mg, oral, 2 times daily magnesium oxide (MAG-OX) 400 mg (241.3 mg elemental magnesium) tablet 1 tablet, 2 times daily metoprolol XL (TOPROL-XL) 50 mg 24 hr tablet TK 1 T PO QD PARoxetine (PAXIL) 20 mg tablet TK 1 T PO QD progesterone (PROMETRIUM) 100 mg capsule VITAMIN D2 50,000 unit capsule TK ONE C PO WEEKLY ALLERGIES Tiffanie is allergic to latex. OBJECTIVE Vital Signs Vitals BP 111/72 (BP Location: Left arm, Patient Position: Sitting) Pulse 64 Temp 36.8 ??C (98.2 ??F) (Temporal) Ht 158.8 cm (5' 2.5) Wt 75.3 kg (166 lb) SpO2 97% BMI 29.88 kg/m?? Physical Exam General: The patient appeared well developed, well nourished and well groomed. HEENT: Normocephalic and atraumatic. Oropharynx was clear. Conjunctivae were clear. Cardiovascular: Regular rate and rhythm. Pulmonary: Symmetric rise and fall of chest wall. No accessory muscle usage observed. Extremities: No edema. Normal. Skin: Normal Neurological Exam: Mental Status: The patient was alert and oriented to self, person, and place. Able to spell worldbackwards. Followed simple midline and appendicular commands. Followed 2-step commands. Naming and repetition intact. Recalls 3/3 objects at 5 minutes. Cranial Nerves: Pupils equal, regular, and reactive to light and accommodation. Extraocular movements intact. Visual cisneros full to confrontation. Symmetric to light touch in V1-V3 distributions bilaterally. No facial asymmetry. Hearing symmetric to voice bilaterally. Palate elevates symmetrically.Tongue protrudes midline. Motor: Bulk was normal. Tone was normal. There was no pronator drift. Fasciculations were absent. No tremor was noted. Shoulder Abduction Elbow flexion Elbow extension Wrist Extension Finger abduction Thumb Opposition Hip Flexion Hip Extension Knee Flexion Knee Extension Ankle Dorsiflexion Ankle Plantarflexion Left 5 5 5 5 5 5 5 5 5 5 5 5 Right 5 5 5 5 5 5 5 5 5 5 5 5 Sensation: The patient had normal sensation to temperature and light touch. Coordination: Finger to nose testing and rapid alternating movements were normal. Gait: The patient demonstrated normal station and jules. Reflexes: Biceps Brachioradialis Triceps Patellar Achilles Left 2+ 2+ 2+ 3+ 3+ Right 2+ 2+ 2+ 3+ 3+ Ngo sign negative. Labs: [facility] Imaging/Studies: 04/10/[address]: MRI brain Liberal 04/23/24: Results for orders placed or performed during the hospital encounter of 05/30/24 EEG Narrative Routine EEG Report Patient Name: Shirin Esquivel [facility] Medical Record Number (MRN): [id number] [facility] Record: [id number] Date of (): 1970 EEG Date: 05/30/2024 Ordering Provider: Humberto Palacios MD CC: Melissa Mendez Start Time: 05/30/2024 10:29:00 AM End Time: 05/30/2024 10:51:16 AM Introduction: Ms. Esquivel is a 53 y.o. female with a history of DAVID and depression who presented with events described as foaming at the mouth, unresponsive, and unarousable. She may have had stiffness of her arms, extended at her sides, before they pulled up and flexed at her elbows. EEG was performed to evaluate for seizures. This is a 32 channel EEG recording acquired on a [employer] EEG-1200 acquisition system. Scalp electrodes were placed according to the international 10-20 System. The analog EEG was filtered from 1-70 Hz and digitally sampled at 200 Hz. The record was then reformatted for review in bipolar and referential montages. EEG Description: The awake background included an 11 Hz posterior rhythm which attenuated with eye opening and activity. There were occasional admixed theta and delta range activity over the right temporal region, at times as sharply contoured morphology. During drowsiness, identified by ocular signs and alpha attenuation, there was intermittent, diffuse, asynchronous theta activity admixed with 2-4 Hz polymorphic frontotemporal delta activity. Hyperventilation and photic strobe stimulation elicited no abnormalities. There were no epileptiform abnormalities. Interpretation: This is an abnormal awake and stage I sleep EEG due to occasional right temporal slowing. Focal slowing indicates focal cerebral dysfunction. A focal structural or physiologic abnormality should be considered. By signing this report, the attending Electroencephalographer certifies that he/she personally reviewed the electrodiagnostics study and has edited this report to fully conform with his/her intent. Signing Attending: Trevor Schwartz MD PhD DEXA: none Assessment 54 y.o. RH female with DAVID (not adherent to CPAP) and depression NOS who is following up for management of one lifetime unprovoked seizure, witnessed, and occurring out of sleep. She does not have clear risk factors for epilepsy. MRI brain (not epilepsy protocol) was without epileptogenic lesion per report. EEG was with right temporal slowing but was without IEDs. She has remained seizure free onmonotherapy. Plan - continue lamotrigine 100 mg twice daily - keep a log of visual disturbances and possible precipitants - referral to sleep medicine for re-evaluation of DAVID and possible re-titration of PAP settings - seizure precautions, no barriers to driving - RTC 1 year My total encounter time on 05/13/2025 was 30 minutes which was spent in the activities documented in the note. This includes time spent prior to the visit and after the visit in direct care of the patient. This time does not include time spent in any separately reportable services. What is the patient's current mean epileptic seizure frequency? 1 lifetime documented in this encounter Plan of Treatment Scheduled Referrals Name Type Priority Associated Diagnoses Order Schedule Ambulatory referral to Sleep Medicine Outpatient Referral Routine DAVID (obstructive sleep apnea) 1 Occurrences starting 05/13/2025 until 05/13/2026 documented as of this encounter Visit Diagnoses Diagnosis DAVID (obstructive sleep apnea)- Primary Obstructive sleep apnea (adult) (pediatric) documented in this encounter Care Teams Central Station Operator Relationship Specialty Start Date End Date Melissa Mendez PA [address] [place] [address] PCP - General Physician Jacquard Loom Fixer 04/17/24 documented as of this encounter
--- OUTSIDE RECORDS SUMMARY | 2025-05-14 09:38 | XMS_ITS | Referral Summary ---
Author Organization [facility] Address [address] [place] [address] Care Team Providers Care Enterprise Architect Manager Name Role Phone Melissa Mendez Primary Care Provider [phone] Encounters Date Type Department Care Team Description 05/13/2025 9:00 AM CDT Office Visit [facility] Epilepsy [address] [place] [address] Humberto Palacios MD DAVID (obstructive sleep apnea) (Primary Dx) from Last 3 Months Allergies Active Allergy Reactions Criticality Noted Date Comments Latex Rash Medium 05/06/2018 Medications VITAMIN D2 50,000 unit capsule TK ONE C PO WEEKLY 3 09/03/2018 Active metoprolol XL (TOPROL-XL) 50 mg 24 hr tablet TK 1 T PO QD 3 10/17/2018 Active PARoxetine (PAXIL) 20 mg tablet TK 1 T PO QD 4 09/03/2018 Active progesterone (PROMETRIUM) 100 mg capsule Active magnesium oxide (MAG-OX) 400 mg (241.3 mg elemental magnesium) tablet Take 1 tablet (400 mg total) by mouth 2 (two) times a day Active lamoTRIgine (LaMICtal) 100 mg tablet TAKE 1 TABLET TWICE A DAY 180 tablet 03/02/2025 Active Active Problems Problem Noted Date Diagnosed Date Seizure 04/30/2024 PVC (premature ventricular contraction) Depression Resolved Problems Problem Noted Date Diagnosed Date Resolved Date Tenosynovitis, de Quervain 05/06/2018 1 Assessment & Plan (10/25/2018 12:40 PM RN FORENSIC): Laterality: right Well healed, no complications or signs of infection reported or noted on exam Significant improvement in preoperative symptoms Will follow up PRN Immunizations Immunization Administration Dates Next Due Influenza, Trivalent, Cell C ulture-based MDCK, Preservative Free, Antibiotic Free, Intramuscular 08/13/2024 Social History Tobacco Use Types Packs/Day Years Used Date Smoking Tobacco: Never Smokeless Tobacco: Never Tobacco Cessation:Counseling Given: Not Answered Alcohol Use Standard Drinks/Week Comments Yes 0 (1 standard drink = 0.6 oz pur e alcohol) occasional Comments Unknown Sex and Gender Information Value Date Recorded Sex Assigned at Not on file Legal Sex Female 4:06 AM RN FORENSIC Gender Identity Female 08/03/2024 9:28 PM CDT Sexual Orientation Not on file Last Filed [...] Mass Index 29.88 05/13/2025 8:59 AM CDT Plan of Treatment Not on file Insurance [facility] [employer] H[employer]PPO Address: [address] [address] [place] [address] [employer] H[employer]/PPO Address: [address] [address] [place] [address] [employer] H[employer]/PPO Address: [address] [address] Care Teams Enterprise Architect Manager Relationship Specialty Start Date End Date Melissa Mendez PA [address] [place], [place] [id number] PCP - General Physician Barytes Grinder 04/17/24
--- OUTSIDE RECORDS SUMMARY | 2025-05-14 09:38 | XMS_ITS | Clinical Summary ---
Author Organization [facility] Medical Office Building [facility] Address [address] [place] [phone] Care Team Providers Care Field Observer Name Role Phone Melissa Mendez Primary Care Provider [phone] Allergies Active Allergy Reactions Criticality Noted Date [...] 1 Assessment & Plan (10/25/2018 12:40 PM SOFTBALL WINDER): Laterality: right Well healed, no complications or signs of infection reported or noted on exam Significant improvement in preoperative symptoms Will follow up PRN Encounters Date Type Department Care Team Description 05/13/2025 9:00 AM CDT Office Visit [facility] Epilepsy [address] [place] [address] Humberto Palacios MD DAVID (obstructive sleep apnea) (Primary Dx) from Last 3 Months Immunizations Immunization Administration Dates Next Due Influenza, Trivalent, Cell C ulture-based MDCK, Preservative Free, Antibiotic Free, Intramuscular 08/13/2024 Medical History Medical History Date Comments PVC (premature ventricular contraction) Depression Seizure (HCC) 04/30/2024 Family History Medical History Relation Name Comments Parkinsonism Mother Relation Name Status Comments Mother Social History Tobacco Use Types Packs/Day Years Used Date Smoking Tobacco: Never Smokeless Tobacco: Never Tobacco Cessation:Counseling Given: Not Answered Alcohol Use Standard Drinks/Week Comments Yes 0 (1 standard drink = 0.6 oz pur e alcohol) occasional Comments Unknown Sex and Gender Information Value Date Recorded Sex Assigned at Not on file Legal Sex Female 4:06 AM SOFTBALL WINDER Gender Identity Female 08/03/2024 9:28 PM CDT Sexual Orientation Not on file Obstetrics History Last Filed Vital Signs Vital Sign Reading [...] 05/13/2025 8:59 AM CDT Plan of Treatment Health Maintenance Due Date Last Done Comments Breast Cancer Screening-Mammogram 1970 Cervical Cancer Screening 1970 Colon Cancer Screening-Colonoscopy 1970 Depression Screening 1970 Hepatitis C Screening 1970 DTaP/Tdap/Td Vaccine (1 - Tdap) 1980 Hepatitis B Screening 1987 Regular Well Visit/Exam 18-64 1987 Pneumococcal vaccine <65 (1 of 2 - PCV) 1988 Covid-19 Vaccine ( season) 2024 11/02/2021, 12/21/2020, 11/23/2020 Influenza Vaccine (#1) 2025 08/13/2024 Zoster Vaccine Completed 05/30/2024, 03/02/2024 Insurance [employer] [place] [employer] [employer] [facility] H[employer]/PPO Address: [address] [address] [place] [address] [employer] [facility] HMO/PPO Address: [address] [address] [place] [address] [facility] [employer] [facility] HMO/PPO Address: [address] [address] [place] [address] Care Teams Field Observer Relationship Specialty Start Date End Date Melissa Mendez PA [address] [place] [address] PCP - General Physician Network Operations Project Manager 04/17/24
[2025-05-14 09:51] VITALS: BP 127/89; PULSE 53; RESP 16; TEMP 36.6; O2SAT 98
--- NOTE | 2025-05-14 11:10 | ED_ITS ---
HPI - Extremity Injury (Lower) General Chief Complaint: Extremity Injury, Lower Stated Complaint: left ankle swelling/bruising Time Seen by Provider: 05/14/25 10:54 History of Present Illness HPI Narrative: 54-year-old female presents emergency department for an abrasion to her right tib-fib and left ankle pain after ground level mechanical fall that occurred yesterday. Patient states she slipped off of a curb and inverted her left ankle and scraped her right leg on the ground. She did not hit her head or lose consciousness. She states she took ibuprofen this morning with improvement. She is reporting pain, swelling and bruising to the lateral aspect of the ankle and foot. Last Tdap is unknown. Related Data Home Medications ?Medication ?Instructions ?Recorded ?Confirmed ?Last Taken ?Type magnesium oxide 400 mg PO DAILY 01/17/21 04/14/24 09/11/23 History metoprolol succinate 50 mg 50 mg PO DAILY 01/17/21 04/14/24 09/12/23 History tablet,extended release 24 hr paroxetine HCl 20 mg tablet (Paxil) 20 mg PO DAILY 01/17/21 04/14/24 09/12/23 History ergocalciferol (vitamin D2) 1,250 1,250 mcg PO WEEKLY 04/14/24 04/14/24 Unknown History mcg (50,000 unit) capsule hydroxyzine pamoate 25 mg capsule 25 mg PO QID PRN 04/14/24 04/14/24 Unknown History progesterone micronized 100 mg 100 mg PO QAM 04/14/24 04/14/24 Unknown History capsule Allergies Allergy/AdvReac Type Severity Reaction Status Date / Time latex Allergy Intermediate Rash, Verified 05/14/25 09:37 itching Review of Systems Review of Systems: All systems reviewed & are unremarkable except as noted in HPI and below PMFSH Past Medical History Medical History BMI 27.0-27.9,adult DAVID (obstructive sleep apnea) Anxiety Screening for lipid disorders BMI 26.0-26.9,adult DVT (deep venous thrombosis) Surgical History Surgical History Status post de Quervain's release surgery History of breast augmentation Family History Family History Grandparent Family history of heart disease in male family member before age 55 Diabetes mellitus Other A-fib Macular degeneration Parkinsons disease Social History Social History Smoking status: Never smoker Alcohol intake: current Drinks per week: 4 Substance use: never Substance use type: does not use Living arrangements: with family Gender identity (if verbalized by the patient): Female Spiritual care concerns: No Exam Narrative: GENERAL: Well-appearing, well-nourished, and in no acute distress. HEAD: Normocephalic, atraumatic. EYES: EOMI. ENT: Nares clear, no rhinorrhea or epistaxis. Mucous membranes moist. NECK: Supple. CHEST: Clear to auscultation. No respiratory distress. HEART: Regular rate and rhythm. No murmur heard. Normal peripheral pulses. EXTREMITIES:RLE: Large healing superficial abrasions over the right anterior lateral tib-fib, tenderness over the fibula with no obvious deformity. No tenderness remainder of extremity. Full range of motion of knee and ankle without difficulty. Compartments are soft. DP pulses 2+. Sensation intact. LLE: Edema, tenderness and ecchymosis over the lateral malleolus and 4th and 5th metatarsals. Patient is able to wiggle toes has full range of motion of ankle. Compartments are soft. No tenderness remainder of leg. Negative high squeeze. Negative Spears's test. DP pulses 2+. Sensation intact. SKIN: Warm, dry, no rash. NEURO: No focal deficits. Alert and oriented x3 Course Vital Signs Vital signs: Vital Signs Temperature 97.8 F 05/14/25 09:51 Pulse Rate 53 L 05/14/25 09:51 Respiratory Rate 16 05/14/25 09:51 Blood Pressure 127/89 05/14/25 09:51 Pulse Oximetry 98 05/14/25 09:51 Oxygen Delivery Room Air 05/14/25 09:51 Temperature 97.8 F 05/14/25 09:51 Pulse Rate 53 L 05/14/25 09:51 Respiratory Rate 16 05/14/25 09:51 Blood Pressure 127/89 05/14/25 09:51 Pulse Oximetry 98 05/14/25 09:51 Oxygen Delivery Room Air 05/14/25 09:51 MDM - Extremity Injury (Lower) MDM Narrative Medical decision making narrative: 54-year-old female presents emergency department for a ground level mechanical fall that occurred yesterday. Patient is reporting pain and swelling to left lateral malleolus and foot and a large abrasion over the right tib-fib. Vitals with mild bradycardia 53, patient is on metoprolol. Vitals are otherwise unremarkable. Patient is afebrile and nontoxic appearing and resting comfortably in exam bed. Exam is notable for the above. X-rays of the right tib-fib, left ankle and left foot show no acute osseous findings. Patient up dated on results. Her Tdap was updated and she was given bacitracin for the abrasion. Dex wrap applied to her left ankle. Encouraged RICE, Tylenol and ibuprofen and follow-up with PCP. Return precautions discussed. She is agreeable with the plan verbalized understanding. Discharged in stable condition. Discharge Plan Discharge Clinical Impression: Abrasion Left ankle sprain Qualifiers: Encounter type: initial encounter Involved ligament of ankle: unspecified ligament Qualified Code(s): S93.402A - Sprain of unspecified ligament of left ankle, initial encounter Patient Disposition: Home Condition: Stable Instructions: Antibiotic Form, Ankle Sprain (DC), Abrasion (ED) Additional Instructions: You were evaluated in the emergency department for left ankle pain. X-ray showed no broken bones. You were also found have an abrasion to the right leg. Please keep the area clean and dry use antibiotic ointment as directed. Follow- up closely with primary care provider. Rest, ice, elevate and keep her ankle compressed. Take Tylenol ibuprofen as directed on the bottle as needed for pain. Return to the emergency department if he develops significantly worsening pain, fever, drainage or other concerning symptoms. Patient Language: Spanish Prescriptions: New bacitracin zinc 500 unit/gram ointment 1 applic topical TID Qty: 14 0RF No Action metoprolol succinate 50 mg tablet extended release 24 hr 50 mg PO DAILY paroxetine HCl [Paxil] 20 mg tablet 20 mg PO DAILY magnesium oxide 400 mg magnesium capsule 400 mg PO DAILY progesterone micronized 100 mg capsule 100 mg PO QAM Rx Instructions: off 7 days; repeat cycle hydroxyzine pamoate 25 mg capsule 25 mg PO QID PRN ergocalciferol (vitamin D2) 1,250 mcg (50,000 unit) capsule 1,250 mcg PO WEEKLY Follow-up/Referrals: Walter,MELECIO Salazar [Primary Care Provider] -
--- OUTSIDE RECORDS SUMMARY | 2025-05-14 11:34 | XMS_ITS | Clinical Summary ---
Author Organization [facility] [employer] Address [address] [place] [address] Care Team Providers Care Supervisor Quality Control Name Role Phone Unavailable Primary Care Provider Unavailabl e Source Comments [facility] [employer],non-owned Affiliates and Associated Physician Practices is amultiple site organization consisting of ambulatory clinics and hospital sitesin [place], [place], [place] and [place]. This disclosure is being madepursuant to the Care Everywhere program and may not contain all information available regarding this patient. Last updated 18.[employer] Allergies Active Allergy Reactions Criticality Noted Date [...] patient's age to complete this topic Insurance [facility]
--- OUTSIDE RECORDS SUMMARY | 2025-05-14 11:34 | XMS_ITS | Encounter Summary ---
Author Organization [facility] Address [address] [place] [address] Phone Care Team Providers Care Deburrer Name Role Phone Melissa Mendez Primary Care Provider + [phone] Reason for Referral * Consultation (Routine) - Pending Review Specialty Diagnoses / Procedures Referred By Audrey westfall Referred To Contact Sleep Medicine Diagnoses DAVID (obstructive sleep apnea) Humberto Palacios MD [facility] [address] [address] Phone: tel: fax: [facility] (All Locations) Referral ID Status Reason Start Date Expiration Date Visits Requested Visits Authorized [id number] Pending Review Specialty Services Required 05/13/2025 06/12/2026 1 1 Question Answer Please select the performing region: [facility] (All Locations) [[id number]] # of visits: 1 Reason for Visit * Reason Comments Seizures Encounter Details Date Type Department Care Team (Late st Contact Info) Description 05/13/2025 9:00 AM CDT Office Visit [facility] Epilepsy [address] [place] [address] Humberto Palacios MD [facility] [address] [place] [address] [phone] DAVID (obstructive sleep apnea) (Primary Dx) Social History Tobacco Use Types Packs/Day Years Used Date Smoking Tobacco: Never Smokeless Tobacco: Never Tobacco Cessation:Counseling Given: Not Answered Alcohol Use Standard Drinks/Week Comments Yes 0 (1 standard drink = 0.6 oz pur e alcohol) occasional Comments Unknown Sex and Gender Information Value Date Recorded Sex Assigned at Not on file Legal Sex 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 Labs: [facility] Imaging/Studies: 04/10/[address]: MRI brain [place] 04/23/24: Results for orders placed or performed during the hospital encounter of 05/30/24 EEG Narrative Routine EEG Report Patient Name: Shirin Esquivel [facility] Medical Record Number (MRN): [id number] [facility] Record: [id number] Date of (): 1970 EEG Date: 05/30/2024 [...] 32 channel EEG recording acquired on a [employer] EEG-1200 acquisition system. Scalp electrodes were placed [...] (pediatric) documented in this encounter Care Teams Deburrer Relationship Specialty Start Date End Date Melissa Mendez PA [address] [place] [address] PCP - General Physician Coding Machine Operator 04/17/24 documented as of this encounter
--- OUTSIDE RECORDS SUMMARY | 2025-05-14 11:34 | XMS_ITS | Clinical Summary ---
Author Organization [facility] Office [facility] Address [address] [place] [id number] Care Team Providers Care Metal Control Coordinator Name Role Phone Melissa Mendez Primary Care Provider [phone] Allergies Active Allergy Reactions Criticality Noted Date [...] 1 Assessment & Plan (10/25/2018 12:40 PM SUPERVISOR ASSEMBLY): Laterality: right Well healed, no complications or signs of infection reported or noted on exam Significant improvement in preoperative symptoms Will follow up PRN Encounters Date Type Department Care Team Description 05/13/2025 9:00 AM CDT Office Visit [facility] Epilepsy [address] [place] [address] Humberto Palacios MD DAVID (obstructive sleep apnea) [...] on file Legal Sex Female 4:06 AM SUPERVISOR ASSEMBLY Gender Identity Female 08/03/2024 9:28 PM CDT [...] 08/13/2024 Zoster Vaccine Completed 05/30/2024, 03/02/2024 Insurance Customer [employer]formerly [employer] [place] [facility] [employer] [facility] H[employer]/PPO Address: [address] [address] [place] [address] [facility] [employer] [facility] [employer]/PPO Address: [address] [address] [place] [address] [facility] [employer] [facility] H[employer]/PPO Address: [address] [address] [place] [address] Care Teams Metal Control Coordinator Relationship Specialty Start Date End Date Melissa Mendez PA [address] [place] [address] PCP - General Physician Sheet Metal Worker Helper 04/17/24
--- OUTSIDE RECORDS SUMMARY | 2025-05-14 11:34 | XMS_ITS | Referral Summary ---
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): Laterality: right Well healed, no complications or [...] on file Legal Sex Female 4:06 AM CONCRETE GRINDER OPERATOR Gender Identity Female 08/03/2024 9:28 PM CDT [...] Plan of Treatment Not on file Insurance [facility] [employer] [facility] [employer]/PPO Address: [address] [address] [place] [address] [employer] [facility] H[employer]/PPO Address: [address] [address] [place] [address] [employer] [facility] H[employer]/PPO Address: [address] [address] Care Teams Trim Master Operator Relationship Specialty Start Date End Date Melissa Mendez PA [address] [place], [place] [id number] PCP - General Physician Loan Collector 04/17/24
[2025-05-14] MEDS: TETANUS,DIPHTHERIA,AC PERTUSSIS ADULT (0.5 ML) BOOSTRIX IM (12:01)
[2025-05-14 12:28] VITALS: BP 125/77; PULSE 66; RESP 16; O2SAT 98
== END 2025-05-14 12:31 | disposition home or self-care (01) ==
PROVIDERS: Emergency Provider Physician Assistant; PCP Nurse Practitioner
DX: S93.402A Sprain of unspecified ligament of left ankle, initial encounter (principal); S90.512A Abrasion, left ankle, initial encounter; W10.1XXA Fall (on)(from) sidewalk curb, initial encounter; Z23 Encounter for immunization
CPT/HCPCS: 73590; 73610; 73630; 90471; 90715; 99284

== ENCOUNTER 2025-06-08 09:57 | Outpatient (CLI) | payer OTHER, SELFPAY ==
--- NOTE | ~2025-06-08 | DEXA_ITS ---
Bone Density Report Name: ELSIA BRANDON Age: 54 Sex: Female Ethnicity: White Date of : 1970 Indication: osteopenia; seizure disorder; Referring Provider: MOLLY, ZEYNEP Study: Bone densitometry was performed. Exam Date: June 08, 2025 Accession number: [id number] Bone Density: Region BMD T-score Z-score Classification AP Spine(L1-L4) 0.873 -1.6 -0.5 Osteopenia Femoral Neck (Left) 0.824 -0.2 0.9 Normal Total Hip (Left) 0.935 -0.1 0.6 Normal Femoral Neck (Right) 0.767 -0.7 0.3 Normal Total Hip (Right) 0.917 -0.2 0.5 Normal Total Hip Mean 0.926 -0.2 0.6 Normal World Health Organization criteria for BMD impression classify patients as: Normal (T-score at or above -1.0), Osteopenia (T-score between -1.0 and -2.5), or Osteoporosis (T-score at or below -2.5). 10-year Fracture Risk: FRAX not reported because: Premenopausal woman Previous Exams: -- Region Exam Age BMD T-score BMD Change BMD Change Date g/cm2 vs Baseline vs Previous -- AP Spine (L1-L4) 06/08/2025 54 0.873 -1.6 -1.9% -1.9% 02/19/2023 52 0.891 -1.4 Total Hip(Left) 06/08/2025 54 0.935 -0.1 -1.8% -1.8% 02/19/2023 52 0.952 0.1 Total Hip(Right) 06/08/2025 54 0.917 -0.2 0.2% 0.2% 02/19/2023 52 0.915 -0.2 -- *Denotes significance at 95% confidence level, LSC for AP Spine = 0.022 g/cm2, LSC for Total Hip = 0.027 g/cm2 Clinical Information Provided by Patient: Has used the following medications: Vitamin D Has the following medical conditions: Any Seizure Disorders Patient maximum height was 63 Menopause Age: 51 No regular weight bearing exercise Drinks caffeinated beverages Onset of menses at age 13 Premenopausal Number of children 2 Impression: The patient's bone mass is within expected range for age, gender and ethnicity. No significant bone loss was observed. Discussion: BONE DENSITY IS WITHIN EXPECTED LIMITS FOR AGE, SEX AND RACE. Bone density is within expected limits for age, sex and race at all sites measured. The patient should follow a healthful lifestyle (good nutrition with adequate calcium and vitamin D, and appropriate weight-bearing exercise). Follow-Up: Consider repeating this study in 2 to 3 years to reassess this patient's status, or sooner if there is some new clinical indication. Reported by: KARLO on 06/08/2025 10:19:00 AM. Reviewed, dictated and finalized at location A.
== END 2025-06-08 09:58 | disposition home or self-care (01) ==
PROVIDERS: PCP Nurse Practitioner; Visit Provider Nurse Practitioner
DX: M85.88 Other specified disorders of bone density and structure, other site (principal); Z78.0 Asymptomatic menopausal state
CPT/HCPCS: 77080